=== PATIENT | female | born 1995 | race Two or more races ===

== ENCOUNTER 2018-05-03 00:21 | Emergency (ER) | payer SELFPAY ==
[~2018-05-03] VITALS: Ht 152.4 cm; Wt 54.4 kg
[2018-05-03 00:32] VITALS: BP 115/72
[2018-05-03] MEDS ORDERED: IBUPROFEN600 MG ORAL (02:07)
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
[2018-05-03 02:15] VITALS: BP 112/68
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
== END 2018-05-03 02:15 | disposition home or self-care (01) ==
LOC: EMR 00:38
DX: S16.1XXA Strain of muscle, fascia and tendon at neck level, initial encounter (principal); V43.52XA Car driver injured in collision with other type car in traffic accident, initial encounter; Y92.410 Unspecified street and highway as the place of occurrence of the external cause
CPT/HCPCS: 72052; 99283